=== PATIENT | female | born 1990 | race Caucasian/White ===

== ENCOUNTER 2016-09-02 13:17 | Emergency (ER) | payer BC ==
[~2016-09-02 13:17] MED LIST: BACIDCA PO; CIPR500T89 PO; METR500IV PO
[2016-09-02 15:49] LABS: BASO % 0.4 % (0.0-1.0); EOS # 0.1 K/mm3 (0.0-0.50); EOS % 1.5 % (0.0-3.0); LARGE UNSTAINED CELL # 0.1 K/mm3 (0.0-0.4); LARGE UNSTAINED CELL % 1.7 % (0.0-4.0); LYMPH # 1.3 K/mm3 (1.5-6.5); LYMPH % 20.4 % (24.0-44.0); MEAN CORPUSCULAR HGB CONC 33.9 g/dl (32.0-36.5); MEAN CORPUSCULAR VOLUME 91.6 fl (80.0-96.0); MONO # 0.3 K/mm3 (0.0-0.8); MONO % 5.2 % (0.0-5.0); NEUTROPHILS # 4.6 K/mm3 (1.8-7.7); NEUTROPHILS % 70.8 % (36.0-66.0); PLATELET COUNT, AUTOMATED 271 k/mm3 (150-450); RED CELL DISTRIBUTION WIDTH 12.3 % (11.5-14.5); WHITE BLOOD COUNT 6.5 K/mm3 (4.0-10.0)
--- NOTE | 2016-09-02 18:28 | EDDOCDS ---
Nurse's Notes [facility] Name: Marlene Souza Age: 26 yrs Sex: Female : 1990 Arrival Date: 09/02/2016 Time: 13:17 Bed I5 / M5 Private MD: NO PRIMARY PHYSICIAN, . Diagnosis: Pelvic and perineal pain; related conditions, unspecified, first trimester-early vs ectopic Presentation: 09/02 13:31 Presenting complaint: Patient states: Vaginal bleeding/cramps since yesterday. home rs3 test positive last week. Risk factors: The patient reports no loss of conciousness prior to arrival. This patient has not had a hysterectomy. This patient has not begun menopause. Adult Sepsis Screening: The patient does not have new or worsening altered mentation. Patient's respiratory rate is less than 22. Systolic blood pressure is greater than 100. Patient has a qSOFA score of 0- Negative Sepsis Screen. Suicide/Homicide risk assessment- the patient denies having any suicidal and/or homicidal ideations and does not present with any other emotional, behavioral or mental health complaints. Status: Patient is not a technical service representative or dependent. Transition of care: patient was not received from another setting of care. 13:31 Acuity: KP Level 3 rs3 13:31 Method Of Arrival: Walkin/Carried/Asstd rs3 Triage Assessment: 13:33 General: Appears in no apparent distress. Pain: Location: pelvis. HIV screening NA for rs3 this visit Offered previously. : Reports vaginal bleeding that is moderate flow. 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 none - PMHx: none; - PSHx: none; - Social history: Smoking status: Patient uses tobacco products, current some day smoker. No barriers to communication noted, The patient speaks fluent Polish. - Family history: Not pertinent. - : The pt / caregiver states he / she is not on anticoagulants. Home medication list is obtained from the patient. - Exposure Risk Screening:: None identified. Screenin:17 Screening information is obtained from the patient. Fall risk: No risks identified. jmb Assistance ADL's: requires no assistance with activities of daily living. Abuse/DV Screen: The patient / caregiver reports he/she is: not in a situation that causes fear, pain or injury. Nutritional screening: No deficits noted. home support is adequate. 18:16 Advance Directives: Currently, there is no health care proxy. There is no active DNR b order. There is no living will. There is no Power of Personal Care Worker. Assessment: 16:17 General: Appears in no apparent distress, Behavior is appropriate for age, cooperative, jmb Patient laying on stretcher looking up food on cell phone. NO voiced complaints at this time.. Neurological: Level of Consciousness is awake, alert, obeys commands, Oriented to person, place, time, Speech is normal, Facial symmetry appears normal, Facial symmetry: tongue is midline. Cardiovascular: Capillary refill < 3 seconds Heart tones present Pulses are all present. Rhythm is regular. Respiratory: Airway is patent Respiratory effort is even, unlabored, Respiratory pattern is regular, symmetrical, Breath sounds are clear bilaterally. GI: Abdomen is non- distended Bowel sounds present X 4 quads. GI: Abd is soft X 4 quads. Derm: Skin is pink, warm & dry. Musculoskeletal: Range of motion intact in all extremities. 16:53 General: Appears in no apparent distress, comfortable, Behavior is appropriate for age, jmb cooperative. Neurological: Level of Consciousness is awake, alert, obeys commands, Oriented to person, place, time. Respiratory: Airway is patent Respiratory effort is even, unlabored, Respiratory pattern is regular, symmetrical. 17:30 General: Appears in no apparent distress, comfortable, Behavior is appropriate for age, jmb cooperative, Patient sitting on stretcher, appears comfortable. NO voiced complaints at this time.. 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 Respiratory: Airway is patent Respiratory effort is even, unlabored, Respiratory pattern is regular, symmetrical. 18:01 General: Appears in no apparent distress, comfortable, Behavior is appropriate for age, jmb cooperative. Neurological: Level of Consciousness is awake, alert, obeys commands, Oriented to person, place, time. Respiratory: Airway is patent Respiratory effort is even, unlabored, Respiratory pattern is regular, symmetrical. 18:16 General: Patient instructed on discharge instructions. Patient asked if there were any [facility] questions regarding discharge, patient stated no. Patient signed discharge instructions. Patient discharged in stable condition. . Vital Signs: 13:19 BP 153 / 87; Pulse 89; Resp 18; Temp 97.3(O); Pulse Ox 100% ; Weight 77.11 kg; Height 5 elp ft. 3 in. (160.02 cm); Pain 2/10; 18:17 BP 132 / 70; Pulse 75; Resp 18; Temp 97.4(TE); Pulse Ox 98% on R/A; Pain 3/10; dem1 13:19 Body Mass Index 30.11 (77.11 kg, 160.02 cm) elp Vitals: 13:19 Log In Time: September 02, 2016 at 13:16. elp ED Course: 13:18 Patient visited by Madeline Davalos PCA. elp 13:18 Patient moved to Waiting elp 13:19 NO PRIMARY PHYSICIAN, . is Private Physician. elp 13:19 Patient visited by Madeline Davalos PCA. elp 13:19 Patient moved to Pre RCE elp 13:33 Triage Initiated rs3 14:35 Patient moved to Triage 1 ct3 15:02 Mitchel Anne PA-C is PHCP. ar2 15:03 Primo Higuera MD is Attending Physician. ar2 15:03 Patient visited by Mitchel Anne PA-C. ar2 15:17 UA Sent. ct3 15:19 Patient visited by Rosanna Craig PCA. ct3 15:35 Patient moved to I5 / M5 ms2 15:42 [facility] Payment Agreement was scanned into [employer] and attached to record. lg 15:52 Patient moved to Ultrasound dem1 16:01 Patient moved to I5 / M5 jmb 16:11 PHCP role handed off by Mitchel Anne PA-C mo1 16:11 Aaron Morrow PA is PHCP. mo1 16:17 The patient / caregiver is instructed regarding the plan of care and ED course. jmb 16:20 Patient visited by Nhan Mendoza RN. jmb 16:40 GC & Chlamydia Amplification Sent. dem1 16:40 Wet Prep Sent. dem1 16:56 Patient visited by Nhan Mendoza RN. fredrick 17:31 Patient visited by Nhan Mendoza RN. jmbenton 18:02 Patient visited by Nhan Mendoza RN. jmb 18:14 Leander Lilly MD is Referral Physician. mo1 18:16 No IV's were initiated during this patient's visit. No procedures done that require jmb assistance. 18:18 Patient visited by Kera Zhu. dem1 Point of Care Testing: Urine : 15:19 hCG Reading: Positive; Control Reading: Positive; ct3 Ranges: Order Results: Lab Order: UA; SPEC'M 09/02/16 15:18 Test: APPEARANCE, URINE; Value: CLEAR; Range: CLEAR; Status: F Test: COLOR, URINE; Value: YELLOW; Range: YELLOW; Status: F Test: PH,URINE; Value: 5.0; Range: 5.0-9.0; Units: UNITS; Status: F Test: SPECIFIC GRAVITY URINE AUTO; Value: 1.029; Range: 1.002-1.035; Status: F Test: PROTEIN, URINE AUTO; Value: 1+; Range: NEGATIVE; Abnormal: Above high normal; Units: mg/dL; Status: F Test: GLUCOSE, URINE (UA) AUTO; Value: NEGATIVE; Range: NEGATIVE; Units: mg/dL; Status: F Test: KETONE, URINE AUTO; Value: NEGATIVE; Range: NEGATIVE; Units: mg/dL; Status: F Test: UROBILINOGEN, URINE AUTO; Value: 0.2; Range: 0.0-2.0; Units: mg/dL; Status: F Test: BILIRUBIN, URINE AUTO; Value: NEGATIVE; Range: NEGATIVE; Status: F Test: NITRITE, URINE AUTO; Value: NEGATIVE; Range: NEGATIVE; Status: F Test: LEUKOCYTE ESTERASE, URINE AUTO; Value: NEGATIVE; Range: NEGATIVE; Status: F Test: BLOOD, URINE BLOOD; Value: 3+; Range: NEGATIVE; Abnormal: Above high normal; Status: F Test: WBC, URINE AUTO; Value: 2; Range: 0-3; Units: /HPF; Status: F Test: RBC, URINE AUTO; Value: 4; Range: 0-3; Abnormal: Above high normal; Units: /HPF; Status: F Test: BACTERIA, URINE AUTO; Value: NEGATIVE; Range: NEGATIVE; Status: F Test: SQUAMOUS EPITHELIAL CELL UR AU; Value: 4; Range: 0-6; Units: /HPF; Status: F Test: MUCUS, URINE; Value: SMALL; Range: NEGATIVE; Status: F Test: HYALINE CAST, URINE AUTO; Value: 0; Range: 0-1; Units: /LPF; Status: F Lab Order: Wet Prep; SPEC'M 09/02/16 15:33 Test: WET PREP; Value: WET PREP RESULT; Status: F Test: WET PREP; Value: MODERATE EPITHELIAL CELLS PRESENT; Status: F Test: WET PREP; Value: FEW WBC; Status: F Test: WET PREP; Value: FEW RBC; Status: F Test: WET PREP; Value: FEW SHORT RODS PRESENT; Status: F Test: WET PREP; Value: Comments:; Status: F Test Note: ; Specimen did not meet the 1 hour time limit from collection to examination. Trichomonas vaginalis loses motility quickly therefore, samples need to be examined within 1 hour of collection to optimally identify this organism. Lab Order: CBC with Diff; SPEC'M 09/02/16 15:34 Test: WHITE BLOOD COUNT; Value: 6.5; Range: 4.0-10.0; Units: K/mm3; Status: F Test: RED BLOOD COUNT; Value: 4.67; Range: 4.00-5.40; Units: M/mm3; Status: F Test: HEMOGLOBIN; Value: 14.5; Range: 12.0-16.0; Units: g/dl; Status: F Test: HEMATOCRIT; Value: 42.8; Range: 36.0-47.0; Units: %; Status: F Test: MEAN CORPUSCULAR VOLUME; Value: 91.6; Range: 80.0-96.0; Units: fl; Status: F Test: MEAN CORPUSCULAR HEMOGLOBIN; Value: 31.0; Range: 27.0-33.0; Units: pg; Status: F Test: MEAN CORPUSCULAR HGB CONC; Value: 33.9; Range: 32.0-36.5; Units: g/dl; Status: F Test: RED CELL DISTRIBUTION WIDTH; Value: 12.3; Range: 11.5-14.5; Units: %; Status: F Test: PLATELET COUNT, AUTOMATED; Value: 271; Range: 150-450; Units: k/mm3; Status: F Test: NEUTROPHILS %; Value: 70.8; Range: 36.0-66.0; Abnormal: Above high normal; Units: %; Status: F Test: LYMPH %; Value: 20.4; Range: 24.0-44.0; Abnormal: Below low normal; Units: %; Status: F Test: MONO %; Value: 5.2; Range: 0.0-5.0; Abnormal: Above high normal; Units: %; Status: F Test: EOS %; Value: 1.5; Range: 0.0-3.0; Units: %; Status: F Test: BASO %; Value: 0.4; Range: 0.0-1.0; Units: %; Status: F Test: LARGE UNSTAINED CELL %; Value: 1.7; Range: 0.0-4.0; Units: %; Status: F Test: NEUTROPHILS #; Value: 4.6; Range: 1.8-7.7; Units: K/mm3; Status: F Test: LYMPH #; Value: 1.3; Range: 1.5-6.5; Abnormal: Below low normal; Units: K/mm3; Status: F Test: MONO #; Value: 0.3; Range: 0.0-0.8; Units: K/mm3; Status: F Test: EOS #; Value: 0.1; Range: 0.0-0.50; Units: K/mm3; Status: F Test: BASO #; Value: 0.0; Range: 0.0-0.2; Units: K/mm3; Status: F Test: LARGE UNSTAINED CELL #; Value: 0.1; Range: 0.0-0.4; Units: K/mm3; Status: F Lab Order: Rh Only; SPEC'M 09/02/16 15:34 Test: RH; Value: POSITIVE; Status: F Lab Order: Hcg, Serum Quantitative; SPEC'M 09/02/16 15:34 Test: HCG, SERUM QUANTITATIVE; Value: 1449; Units: MIU/ML; Status: F Test Note: ; GESTATIONAL AGE APPROXIMATE HCG RANGE (MIU/ML) 0.2-1 WEEK 5-50 1-2 WEEKS 50-500 2-3 WEEKS 100-5,000 3-4 WEEKS 500-10,000 4-5 WEEKS 1,000-50,000 5-6 WEEKS 10,000-100,000 6-8 WEEKS 15,000-200,000 2-3 MONTHS 10,000-100,000 NON FEMALES LESS THAN 3.0 Patient samples may contain human heterophilic antibodies that could react with immunoassays to give falsely elevated or depressed results. This assay has been designed to minimize interference from heterophilic antibodies. Elevated hCG levels have also been associated with trophoblastic disease and nontrophoblastic neoplasms. The possibility of having these diseases should be considered before a diagnosis of is made. This test is not intended for use as a surrogate marker for aiding in the diagnosis or monitoring the treatment of cancer patients. [employer] methodology. Outcome: 18:14 Discharge ordered by Provider. mo1 18:16 Discharge Assessment: Patient awake, alert and oriented x 3. No cognitive and/or jmb functional deficits noted. Patient verbalized understanding of disposition instructions. Patient awake and alert. obeys commands, Oriented to person, place and time. Patient verbalized understanding of disposition instructions. Patient has no functional deficits. patient administered narcotics - no. The following High Risk Discharge criteria are identified: None. Discharged to home ambulatory. Condition: stable. Discharge instructions given to patient, Instructed on discharge instructions, follow up and referral plans. Demonstrated understanding of instructions, Pt was receptive of discharge instructions/ teaching. Ultrasound Study completed. Property sent home with patient. 18:26 Patient left the ED. fredrick Signatures: Manish Benjamin,TATE YBARRA ms2 Zeinab Richards, Reg Reg lg Mitchel Anne PA-So PA-So ar2 Dorothea Brasher RN RN rs3 Rosanna Craig, BUNDLE HELPER BUNDLE HELPER ct3 Kera Zhu dem1 Aaron Morrow PA PA mo1 Madeline Davalos, BUNDLE HELPER BUNDLE HELPER lap Nhan Mendoza RN RN jmb MTDD
--- NOTE | 2016-09-02 18:28 | EDDOCDS ---
Physician Documentation [facility] Name: Marlene Souza Age: 26 yrs Sex: Female : 1990 Arrival Date: 09/02/2016 Time: 13:17 Bed I5 / M5 Private MD: NO PRIMARY PHYSICIAN, . Disposition: 09/02/16 18:14 Discharged to Home/Self Care. Impression: Pelvic and perineal pain, related conditions, unspecified, first trimester - early vs ectopic. - Condition is Stable. - Discharge Instructions: First Trimester of , Pelvic Pain, Female, Ectopic . - Medication Reconciliation, Work Release Form - 3 day, Local Pharmacy Hours form. - Follow up: Leander Lilly MD; When: Call to arrange an appointment; Reason: Recheck today's complaints, Continuance of care. Follow up: Emergency Department; When: 1 - 2 days; Reason: Recheck today's complaints, Continuance of care. - Problem is new. - Symptoms are unchanged. - Notes: return to ER on monday for repeat beta HCG and possible ultrasound Historical: - Allergies: no known allergies; - Home Meds: 1. none - PMHx: none; - PSHx: none; - Social history: Smoking status: Patient uses tobacco products, current some day smoker. No barriers to communication noted, The patient speaks fluent Wolof. - Family history: Not pertinent. - : The pt / caregiver states he / she is not on anticoagulants. Home medication list is obtained from the patient. - Exposure Risk Screening:: None identified. 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 3 in. (160.02 cm); Pain 2/10; 18:17 BP 132 / 70; Pulse 75; Resp 18; Temp 97.4(TE); Pulse Ox 98% on R/A; Pain 3/10; dem1 13:19 Body Mass Index 30.11 (77.11 kg, 160.02 cm) elp MDM: 15:09 UCG by Nursing ordered. ar2 15:10 UA Ordered. EDMS 15:28 Set up pelvic ordered. ar2 15:28 Undress patient appropriately for examination ordered. ar2 15:29 Financial registration complete. lg 15:29 Rh Only Ordered. EDMS 15:29 GC & Chlamydia Amplification Ordered. EDMS 15:29 CBC with Diff Ordered. EDMS 15:29 Hcg, Serum Quantitative Ordered. EDMS 15:29 Wet Prep Ordered. EDMS 15:30 US 1st trimester Ordered. EDMS 15:42 [facility] Payment Agreement was scanned into [employer] and attached to record. lg 16:04 TRANSVAGINAL US Ordered. EDMS 16:04 DUPLEX SCAN LIMITED (DOPPLER) Ordered. EDMS 16:30 Hcg, Serum Quantitative Reviewed. mo1 16:30 Rh Only Reviewed. mo1 16:30 CBC with Diff Reviewed. mo1 16:30 UA Reviewed. mo1 17:12 Wet Prep Reviewed. mo1 Point of Care Testing: Urine : 15:19 hCG Reading: Positive; Control Reading: Positive; ct3 Ranges: Signatures: Dispatcher [employer] EDZeinab Hernandez, Reg Reg lg Mitchel Anne PA-C PASanjiv ar2 Dorothea Brasher,RN RN rs3 Aaron Morrow PA PA mo1 Nhan Mendoza RN RN carlib The chart was reviewed and I authenticate all verbal orders and agree with the evaluation and treatment provided.Attachments: 15:42 [facility] Payment Agreement lg MTDD
--- NOTE | 2016-09-03 22:10 | REP ---
First trimester OB ultrasound 09/02/2016 Indication: left-sided pain for 2 days with bleeding Comparison: None Technique: Trans abdominal and transvaginal first trimester OB ultrasound was performed with gonzalez scale imaging, spectral wave, and color Doppler imaging. Findings: Last menstrual period 07/08/2016. According to last menstrual period fetus should be 2-tkal-6-day gestational age. The patient is G4, P 3 . The uterus measures 8.6 x 3.8 x 4.6 cm in dimension. The endometrium is 3 mm in thickness. On image 52 tiny cystic focus is seen within the endometrium of 2.2 mm diameter and is nonspecific . The right ovary measures 2.2 x 0.7 x 2.4 cm and is unremarkable as visualized. Left ovary measures 2.9 x 1.8 x 3.1 cm and contains a 1.5 cm follicle. Perfusion is noted to the bilateral ovaries, therefore no evidence of torsion. Between the left ovary and the uterus is a hyperechoic area measuring 1.7 x 1.2 x 2.1 cm which has some and peripheral perfusion concerning for adnexal mass such as ectopic . There is no free fluid in cul-de-sac Impression: Echogenic 2.1 cm left adnexal mass which has peripheral perfusion, and is concerning for left ectopic . No free fluid in cul-de-sac. Tiny 2.2 nonspecific cystic focus within the endometrium. This could represent a pseudo gestational sac or early gestational sac. Case discussed with JOSHUA Liu on 09/02/16 at 435 pm. Recommend SEISMIC PLOTTER evaluation. Signed by Barbara Grimes MD 09/03/2016 10:01 P
[2016-09-04] MEDS ORDERED: OXYC1TAB23 PO (04:27)
--- NOTE | 2016-09-04 19:27 | EDDOCDS ---
Physician Documentation [facility] Name: Marlene Souza Age: 26 yrs Sex: Female : 1990 Arrival Date: 09/02/2016 Time: 13:17 Bed I5 / M5 Private MD: NO PRIMARY PHYSICIAN, . Disposition: 09/02/16 18:14 Discharged to Home/Self Care. Impression: Pelvic and perineal pain, related conditions, unspecified, first trimester - early vs ectopic. - Condition is Stable. - Discharge Instructions: First Trimester of , Pelvic Pain, Female, Ectopic . - Medication Reconciliation, Work Release Form - 3 day, Local Pharmacy Hours form. - Follow up: Leander Lilly MD; When: Call to arrange an appointment; Reason: Recheck today's complaints, Continuance of care. Follow up: Emergency Department; When: 1 - 2 days; Reason: Recheck today's complaints, Continuance of care. - Problem is new. - Symptoms are unchanged. - Notes: return to ER on monday for repeat beta HCG and possible ultrasound Historical: - Allergies: no known allergies; - Home Meds: 1. none - PMHx: none; - PSHx: none; - Social history: Smoking status: Patient uses tobacco products, current some day smoker. No barriers to communication noted, The patient speaks fluent Frisian. - Family history: Not pertinent. - : The pt / caregiver states he / she is not on anticoagulants. Home medication list is obtained from the patient. - Exposure Risk Screening:: None identified. 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 3 in. (160.02 cm); Pain 2/10; 18:17 BP 132 / 70; Pulse 75; Resp 18; Temp 97.4(TE); Pulse Ox 98% on R/A; Pain 3/10; dem1 13:19 Body Mass Index 30.11 (77.11 kg, 160.02 cm) elp MDM: 15:09 UCG by Nursing ordered. ar2 15:10 UA Ordered. EDMS 15:28 Set up pelvic ordered. ar2 15:28 Undress patient appropriately for examination ordered. ar2 15:29 Financial registration complete. lg 15:29 Rh Only Ordered. EDMS 15:29 GC & Chlamydia Amplification Ordered. EDMS 15:29 CBC with Diff Ordered. EDMS 15:29 Hcg, Serum Quantitative Ordered. EDMS 15:29 Wet Prep Ordered. EDMS 15:30 US 1st trimester Ordered. EDMS 15:42 [facility] Payment Agreement was scanned into [employer] and attached to record. lg 16:04 TRANSVAGINAL US Ordered. EDMS 16:04 DUPLEX SCAN LIMITED (DOPPLER) Ordered. EDMS 16:30 Hcg, Serum Quantitative Reviewed. mo1 16:30 Rh Only Reviewed. mo1 16:30 CBC with Diff Reviewed. mo1 16:30 UA Reviewed. mo1 17:12 Wet Prep Reviewed. mo1 09/03 11:11 T-Sheet-- Draft Copy was scanned into [employer] and attached to record. gb 11:11 Radiology Report was scanned into [employer] and attached to record. gb Point of Care Testing: Urine : 09/02 15:19 hCG Reading: Positive; Control Reading: Positive; ct3 Ranges: Signatures: Dispatcher [employer] EDMS Nayely Hernandez, Reg Reg gb Zeinab Richards, Reg Reg lg Mitchel Anne PA-C PA-C ar2 Dorothea Brasher,RN RN rs3 Aaron Morrow PA PA mo1 Nhan Mendoza RN RN jmb The chart was reviewed and I authenticate all verbal orders and agree with the evaluation and treatment provided.Attachments: 15:42 [facility] Payment Agreement lg 09/03 11:11 T-Sheet-- Draft Copy gb Chart Complete MTDD
--- NOTE | 2016-09-04 19:27 | EDDOCDS ---
Nurse's Notes [facility] Name: Marlene Souza Age: 26 yrs Sex: Female : 1990 Arrival Date: 09/02/2016 Time: 13:17 Bed I5 / M5 Private MD: NO PRIMARY PHYSICIAN, . Diagnosis: Pelvic and perineal pain; related conditions, unspecified, first trimester-early vs ectopic Presentation: 09/02 13:31 Presenting complaint: Patient states: Vaginal bleeding/cramps since yesterday. home rs3 test positive last week. Risk factors: The patient reports no loss of conciousness prior to arrival. This patient has not had a hysterectomy. This patient has not begun menopause. Adult Sepsis Screening: The patient does not have new or worsening altered mentation. Patient's respiratory rate is less than 22. Systolic blood pressure is greater than 100. Patient has a qSOFA score of 0- Negative Sepsis Screen. Suicide/Homicide risk assessment- the patient denies having any suicidal and/or homicidal ideations and does not present with any other emotional, behavioral or mental health complaints. Status: Patient is not a director field services or dependent. Transition of care: patient was not received from another setting of care. 13:31 Acuity: KP Level 3 rs3 13:31 Method Of Arrival: Walkin/Carried/Asstd rs3 Triage Assessment: 13:33 General: Appears in no apparent distress. Pain: Location: pelvis. HIV screening NA for rs3 this visit Offered previously. : Reports vaginal bleeding that is moderate flow. 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 none - PMHx: none; - PSHx: none; - Social history: Smoking status: Patient uses tobacco products, current some day smoker. No barriers to communication noted, The patient speaks fluent Wolof. - Family history: Not pertinent. - : The pt / caregiver states he / she is not on anticoagulants. Home medication list is obtained from the patient. - Exposure Risk Screening:: None identified. Screenin:17 Screening information is obtained from the patient. Fall risk: No risks identified. jmb Assistance ADL's: requires no assistance with activities of daily living. Abuse/DV Screen: The patient / caregiver reports he/she is: not in a situation that causes fear, pain or injury. Nutritional screening: No deficits noted. home support is adequate. 18:16 Advance Directives: Currently, there is no health care proxy. There is no active DNR b order. There is no living will. There is no Power of Correctional Substance Abuse Counselor. Assessment: 16:17 General: Appears in no apparent distress, Behavior is appropriate for age, cooperative, jmb Patient laying on stretcher looking up food on cell phone. NO voiced complaints at this time.. Neurological: Level of Consciousness is awake, alert, obeys commands, Oriented to person, place, time, Speech is normal, Facial symmetry appears normal, Facial symmetry: tongue is midline. Cardiovascular: Capillary refill < 3 seconds Heart tones present Pulses are all present. Rhythm is regular. Respiratory: Airway is patent Respiratory effort is even, unlabored, Respiratory pattern is regular, symmetrical, Breath sounds are clear bilaterally. GI: Abdomen is non- distended Bowel sounds present X 4 quads. GI: Abd is soft X 4 quads. Derm: Skin is pink, warm & dry. Musculoskeletal: Range of motion intact in all extremities. 16:53 General: Appears in no apparent distress, comfortable, Behavior is appropriate for age, jmb cooperative. Neurological: Level of Consciousness is awake, alert, obeys commands, Oriented to person, place, time. Respiratory: Airway is patent Respiratory effort is even, unlabored, Respiratory pattern is regular, symmetrical. 17:30 General: Appears in no apparent distress, comfortable, Behavior is appropriate for age, jmb cooperative, Patient sitting on stretcher, appears comfortable. NO voiced complaints at this time.. Neurological: Level of Consciousness is awake, alert, obeys commands, Oriented to person, place, time, Radio Mechanic Apprentice are. Respiratory: Airway is patent Respiratory effort is even, unlabored, Respiratory pattern is regular, symmetrical. 18:01 General: Appears in no apparent distress, comfortable, Behavior is appropriate for age, jmb cooperative. Neurological: Level of Consciousness is awake, alert, obeys commands, Oriented to person, place, time. Respiratory: Airway is patent Respiratory effort is even, unlabored, Respiratory pattern is regular, symmetrical. 18:16 General: Patient instructed on discharge instructions. Patient asked if there were any [place] questions regarding discharge, patient stated no. Patient signed discharge instructions. Patient discharged in stable condition. . Vital Signs: 13:19 BP 153 / 87; Pulse 89; Resp 18; Temp 97.3(O); Pulse Ox 100% ; Weight 77.11 kg; Height 5 elp ft. 3 in. (160.02 cm); Pain 2/10; 18:17 BP 132 / 70; Pulse 75; Resp 18; Temp 97.4(TE); Pulse Ox 98% on R/A; Pain 3/10; dem1 13:19 Body Mass Index 30.11 (77.11 kg, 160.02 cm) elp Vitals: 13:19 Log In Time: September 02, 2016 at 13:16. elp ED Course: 13:18 Patient visited by Madeline Davalos PCA. elp 13:18 Patient moved to Waiting elp 13:19 NO PRIMARY PHYSICIAN, . is Private Physician. elp 13:19 Patient visited by Madeline Davalos PCA. elp 13:19 Patient moved to Pre RCE elp 13:33 Triage Initiated rs3 14:35 Patient moved to Triage 1 ct3 15:02 Mitchel Anne PA-C is PHCP. ar2 15:03 Primo Higuera MD is Attending Physician. ar2 15:03 Patient visited by Mitchel Anne PA-C. ar2 15:17 UA Sent. ct3 15:19 Patient visited by Rosanna Craig PCA. ct3 15:35 Patient moved to I5 / M5 ms2 15:42 [facility] Payment Agreement was scanned into [employer] and attached to record. lg 15:52 Patient moved to Ultrasound dem1 16:01 Patient moved to I5 / M5 jmb 16:11 PHCP role handed off by Mitchel Anne PA-C mo1 16:11 Aaron Morrow PA is PHCP. mo1 16:17 The patient / caregiver is instructed regarding the plan of care and ED course. jmb 16:20 Patient visited by Nhan Mendoza RN. jmb 16:40 GC & Chlamydia Amplification Sent. dem1 16:40 Wet Prep Sent. dem1 16:56 Patient visited by Nhan Mendoza RN. fredrick 17:31 Patient visited by Nhan Mendoza RN. jmbenton 18:02 Patient visited by Nhan Mendoza RN. jmb 18:14 Leander Lilly MD is Referral Physician. mo1 18:16 No IV's were initiated during this patient's visit. No procedures done that require jmb assistance. 18:18 Patient visited by Kera Zhu. dem1 09/03 11:11 T-Sheet-- Draft Copy was scanned into [employer] and attached to record. gb 11:11 Radiology Report was scanned into [employer] and attached to record. gb 22:57 US 1st trimester Returned. EDCA Point of Care Testing: Urine : 09/02 15:19 hCG Reading: Positive; Control Reading: Positive; ct3 Ranges: Order Results: Lab Order: UA; SPEC'M 09/02/16 15:18 Test: APPEARANCE, URINE; Value: CLEAR; Range: CLEAR; Status: F Test: COLOR, URINE; Value: YELLOW; Range: YELLOW; Status: F Test: PH,URINE; Value: 5.0; Range: 5.0-9.0; Units: UNITS; Status: F Test: SPECIFIC GRAVITY URINE AUTO; Value: 1.029; Range: 1.002-1.035; Status: F Test: PROTEIN, URINE AUTO; Value: 1+; Range: NEGATIVE; Abnormal: Above high normal; Units: mg/dL; Status: F Test: GLUCOSE, URINE (UA) AUTO; Value: NEGATIVE; Range: NEGATIVE; Units: mg/dL; Status: F Test: KETONE, URINE AUTO; Value: NEGATIVE; Range: NEGATIVE; Units: mg/dL; Status: F Test: UROBILINOGEN, URINE AUTO; Value: 0.2; Range: 0.0-2.0; Units: mg/dL; Status: F Test: BILIRUBIN, URINE AUTO; Value: NEGATIVE; Range: NEGATIVE; Status: F Test: NITRITE, URINE AUTO; Value: NEGATIVE; Range: NEGATIVE; Status: F Test: LEUKOCYTE ESTERASE, URINE AUTO; Value: NEGATIVE; Range: NEGATIVE; Status: F Test: BLOOD, URINE BLOOD; Value: 3+; Range: NEGATIVE; Abnormal: Above high normal; Status: F Test: WBC, URINE AUTO; Value: 2; Range: 0-3; Units: /HPF; Status: F Test: RBC, URINE AUTO; Value: 4; Range: 0-3; Abnormal: Above high normal; Units: /HPF; Status: F Test: BACTERIA, URINE AUTO; Value: NEGATIVE; Range: NEGATIVE; Status: F Test: SQUAMOUS EPITHELIAL CELL UR AU; Value: 4; Range: 0-6; Units: /HPF; Status: F Test: MUCUS, URINE; Value: SMALL; Range: NEGATIVE; Status: F Test: HYALINE CAST, URINE AUTO; Value: 0; Range: 0-1; Units: /LPF; Status: F Lab Order: Wet Prep; SPEC'M 09/02/16 15:33 Test: WET PREP; Value: WET PREP RESULT; Status: F Test: WET PREP; Value: MODERATE EPITHELIAL CELLS PRESENT; Status: F Test: WET PREP; Value: FEW WBC; Status: F Test: WET PREP; Value: FEW RBC; Status: F Test: WET PREP; Value: FEW SHORT RODS PRESENT; Status: F Test: WET PREP; Value: Comments:; Status: F Test Note: ; Specimen did not meet the 1 hour time limit from collection to examination. Trichomonas vaginalis loses motility quickly therefore, samples need to be examined within 1 hour of collection to optimally identify this organism. Lab Order: GC & Chlamydia Amplification; SPEC'M 09/02/16 15:33 Test: CHLAMYDIA DNA AMPLIFICATION; Value: NEGATIVE; Range: NEGATIVE; Status: F Test: GC DNA AMPLIFICATION; Value: NEGATIVE; Range: NEGATIVE; Status: F Lab Order: CBC with Diff; SPEC'M 09/02/16 15:34 Test: WHITE BLOOD COUNT; Value: 6.5; Range: 4.0-10.0; Units: K/mm3; Status: F Test: RED BLOOD COUNT; Value: 4.67; Range: 4.00-5.40; Units: M/mm3; Status: F Test: HEMOGLOBIN; Value: 14.5; Range: 12.0-16.0; Units: g/dl; Status: F Test: HEMATOCRIT; Value: 42.8; Range: 36.0-47.0; Units: %; Status: F Test: MEAN CORPUSCULAR VOLUME; Value: 91.6; Range: 80.0-96.0; Units: fl; Status: F Test: MEAN CORPUSCULAR HEMOGLOBIN; Value: 31.0; Range: 27.0-33.0; Units: pg; Status: F Test: MEAN CORPUSCULAR HGB CONC; Value: 33.9; Range: 32.0-36.5; Units: g/dl; Status: F Test: RED CELL DISTRIBUTION WIDTH; Value: 12.3; Range: 11.5-14.5; Units: %; Status: F Test: PLATELET COUNT, AUTOMATED; Value: 271; Range: 150-450; Units: k/mm3; Status: F Test: NEUTROPHILS %; Value: 70.8; Range: 36.0-66.0; Abnormal: Above high normal; Units: %; Status: F Test: LYMPH %; Value: 20.4; Range: 24.0-44.0; Abnormal: Below low normal; Units: %; Status: F Test: MONO %; Value: 5.2; Range: 0.0-5.0; Abnormal: Above high normal; Units: %; Status: F Test: EOS %; Value: 1.5; Range: 0.0-3.0; Units: %; Status: F Test: BASO %; Value: 0.4; Range: 0.0-1.0; Units: %; Status: F Test: LARGE UNSTAINED CELL %; Value: 1.7; Range: 0.0-4.0; Units: %; Status: F Test: NEUTROPHILS #; Value: 4.6; Range: 1.8-7.7; Units: K/mm3; Status: F Test: LYMPH #; Value: 1.3; Range: 1.5-6.5; Abnormal: Below low normal; Units: K/mm3; Status: F Test: MONO #; Value: 0.3; Range: 0.0-0.8; Units: K/mm3; Status: F Test: EOS #; Value: 0.1; Range: 0.0-0.50; Units: K/mm3; Status: F Test: BASO #; Value: 0.0; Range: 0.0-0.2; Units: K/mm3; Status: F Test: LARGE UNSTAINED CELL #; Value: 0.1; Range: 0.0-0.4; Units: K/mm3; Status: F Lab Order: Rh Only; SPEC'M 09/02/16 15:34 Test: RH; Value: POSITIVE; Status: F Lab Order: Hcg, Serum Quantitative; SPEC'M 09/02/16 15:34 Test: HCG, SERUM QUANTITATIVE; Value: 1449; Units: MIU/ML; Status: F Test Note: ; GESTATIONAL AGE APPROXIMATE HCG RANGE (MIU/ML) 0.2-1 WEEK 5-50 1-2 WEEKS 50-500 2-3 WEEKS 100-5,000 3-4 WEEKS 500-10,000 4-5 WEEKS 1,000-50,000 5-6 WEEKS 10,000-100,000 6-8 WEEKS 15,000-200,000 2-3 MONTHS 10,000-100,000 NON FEMALES LESS THAN 3.0 Patient samples may contain human heterophilic antibodies that could react with immunoassays to give falsely elevated or depressed results. This assay has been designed to minimize interference from heterophilic antibodies. Elevated hCG levels have also been associated with trophoblastic disease and nontrophoblastic neoplasms. The possibility of having these diseases should be considered before a diagnosis of is made. This test is not intended for use as a surrogate marker for aiding in the diagnosis or monitoring the treatment of cancer patients. Siemens Tribunat methodology. Radiology Order: US 1st trimester Test: US 1st trimester REASON FOR EXAMINATION: Bleeding; First trimester OB ultrasound 09/02/2016; ; Indication: left-sided pain for 2 days with bleeding; ; Comparison: None; ; Technique: Trans abdominal and transvaginal first trimester OB ultrasound was; performed with gonzalez scale imaging, spectral wave, and color Doppler imaging.; ; Findings: Last menstrual period 07/08/2016. According to last menstrual period; fetus should be 6-hswv-7-day gestational age. The patient is G4, P 3 .; ; The uterus measures 8.6 x 3.8 x 4.6 cm in dimension. The endometrium is 3 mm in; thickness. On image 52 tiny cystic focus is seen within the endometrium of 2.2; mm diameter and is nonspecific .; ; The right ovary measures 2.2 x 0.7 x 2.4 cm and is unremarkable as visualized.; Left ovary measures 2.9 x 1.8 x 3.1 cm and contains a 1.5 cm follicle. Perfusion; is noted to the bilateral ovaries, therefore no evidence of torsion. Between the; left ovary and the uterus is a hyperechoic area measuring 1.7 x 1.2 x 2.1 cm; which has some and peripheral perfusion concerning for adnexal mass such as; ectopic .; ; There is no free fluid in cul-de-sac; ; Impression:; ; Echogenic 2.1 cm left adnexal mass which has peripheral perfusion, and is; concerning for left ectopic .; ; No free fluid in cul-de-sac.; ; Tiny 2.2 nonspecific cystic focus within the endometrium. This could represent a; pseudo gestational sac or early gestational sac.; ; Case discussed with JOSHUA Liu on 09/02/16 at 435 pm.; ; Recommend SHEET MILL SUPERVISOR evaluation.; ; ; ; ; Signed by; Barbara Grimes MD 09/03/2016 10:01 P; Outcome: 18:14 Discharge ordered by Provider. mo1 18:16 Discharge Assessment: Patient awake, alert and oriented x 3. No cognitive and/or jmb functional deficits noted. Patient verbalized understanding of disposition instructions. Patient awake and alert. obeys commands, Oriented to person, place and time. Patient verbalized understanding of disposition instructions. Patient has no functional deficits. patient administered narcotics - no. The following High Risk Discharge criteria are identified: None. Discharged to home ambulatory. Condition: stable. Discharge instructions given to patient, Instructed on discharge instructions, follow up and referral plans. Demonstrated understanding of instructions, Pt was receptive of discharge instructions/ teaching. Ultrasound Study completed. Property sent home with patient. 18:26 Patient left the ED. fredrick Signatures: Dispatcher [employer] EDMS Manish Benjamin,RN RN ms2 Nayely Hernandez, Reg Reg gb Zeinab Richards, Reg Reg lg Mitchel Anne PA-C PASanjiv arDorothea Krishnamurthy RN RN rs3 Rosanna Craig, DIRECTOR FIELD SERVICES DIRECTOR FIELD SERVICES ct3 Kera Zhu Michael, PA PA mo1 Madeline Davalos, DIRECTOR FIELD SERVICES DIRECTOR FIELD SERVICES lap Nhan Mendoza RN RN jmb Chart Complete MTDD
--- NOTE | 2016-09-04 19:27 | EDDOCDS ---
Physician Documentation [facility] Name: Marlene Souza Age: 26 yrs Sex: Female : 1990 Arrival Date: 09/02/2016 Time: 13:17 Bed I5 / M5 Private MD: NO PRIMARY PHYSICIAN, . Disposition: 09/02/16 18:14 Discharged to Home/Self Care. Impression: Pelvic and perineal pain, related conditions, unspecified, first trimester - early vs ectopic. - Condition is Stable. - Discharge Instructions: First Trimester of , Pelvic Pain, Female, Ectopic . - Medication Reconciliation, Work Release Form - 3 day, Local Pharmacy Hours form. - Follow up: Leander Lilly MD; When: Call to arrange an appointment; Reason: Recheck today's complaints, Continuance of care. Follow up: Emergency Department; When: 1 - 2 days; Reason: Recheck today's complaints, Continuance of care. - Problem is new. - Symptoms are unchanged. - Notes: return to ER on monday for repeat beta HCG and possible ultrasound Historical: - Allergies: no known allergies; - Home Meds: 1. none - PMHx: none; - PSHx: none; - Social history: Smoking status: Patient uses tobacco products, current some day smoker. No barriers to communication noted, The patient speaks fluent Mohawk. - Family history: Not pertinent. - : The pt / caregiver states he / she is not on anticoagulants. Home medication list is obtained from the patient. - Exposure Risk Screening:: None identified. 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 3 in. (160.02 cm); Pain 2/10; 18:17 BP 132 / 70; Pulse 75; Resp 18; Temp 97.4(TE); Pulse Ox 98% on R/A; Pain 3/10; dem1 13:19 Body Mass Index 30.11 (77.11 kg, 160.02 cm) elp MDM: 15:09 UCG by Nursing ordered. ar2 15:10 UA Ordered. EDMS 15:28 Set up pelvic ordered. ar2 15:28 Undress patient appropriately for examination ordered. ar2 15:29 Financial registration complete. lg 15:29 Rh Only Ordered. EDMS 15:29 GC & Chlamydia Amplification Ordered. EDMS 15:29 CBC with Diff Ordered. EDMS 15:29 Hcg, Serum Quantitative Ordered. EDMS 15:29 Wet Prep Ordered. EDMS 15:30 US 1st trimester Ordered. EDMS 15:42 [facility] Payment Agreement was scanned into [employer] and attached to record. lg 16:04 TRANSVAGINAL US Ordered. EDMS 16:04 DUPLEX SCAN LIMITED (DOPPLER) Ordered. EDMS 16:30 Hcg, Serum Quantitative Reviewed. mo1 16:30 Rh Only Reviewed. mo1 16:30 CBC with Diff Reviewed. mo1 16:30 UA Reviewed. mo1 17:12 Wet Prep Reviewed. mo1 09/03 11:11 T-Sheet-- Draft Copy was scanned into [employer] and attached to record. gb 11:11 Radiology Report was scanned into [employer] and attached to record. gb Point of Care Testing: Urine : 09/02 15:19 hCG Reading: Positive; Control Reading: Positive; ct3 Ranges: Signatures: Dispatcher [employer] EDMS Nayely Hernandez, Reg Reg gb Zeinab Richards, Reg Reg lg Mitchel Anne PA-C PA-C ar2 Dorothea Brasher,RN RN rs3 Aaron Morrow PA PA mo1 Nhan Mendoza RN RN jmb The chart was reviewed and I authenticate all verbal orders and agree with the evaluation and treatment provided.Attachments: 15:42 [facility] Payment Agreement lg 09/03 11:11 T-Sheet-- Draft Copy gb Chart Complete MTDD
== END 2016-09-02 18:26 | disposition home or self-care (01) ==
LOC: M ED 13:17
DX: O26.891 Other specified pregnancy related conditions, first trimester (principal); R10.2 Pelvic and perineal pain; O99.331 Smoking (tobacco) complicating pregnancy, first trimester; F17.210 Nicotine dependence, cigarettes, uncomplicated; Z3A.01 Less than 8 weeks gestation of pregnancy

== ENCOUNTER 2016-09-04 00:07 | Day surgery (SDC) | payer BC ==
[2016-09-04] VITALS (7 sets, daily range): BP systolic 109–131; BP diastolic 55–76
[~2016-09-04] VITALS: Ht 162.6 cm; Wt 77.1 kg
[2016-09-04 01:11] LABS: MEAN CORPUSCULAR HEMOGLOBIN 32.8 pg (27.0-33.0); MEAN CORPUSCULAR VOLUME 91.2 fl (80.0-96.0); RED CELL DISTRIBUTION WIDTH 12.3 % (11.5-14.5); WHITE BLOOD COUNT 5.9 K/mm3 (4.0-10.0)
--- NOTE | 2016-09-04 01:50 | REPUSA ---
CLINICAL HISTORY: determination. TECHNIQUE: Endovaginal ultrasound of the pelvis was performed. FINDINGS: Multiple tiny cysts/sac like structures are noted within the uterus. No decidual reaction is seen. Normal right ovary. Corpus luteum cyst of the left ovary measuring 2 cm Hyperechoic, thickwalled left adnexal mass medial to the left ovary with increased vascularity measur ing 2.1x2.1x2 cm. Surrounding free fluid containing echogenic debris. IMPRESSION: Suspicion of left adnexal ectopic . Surrounding heterogeneous fluid containing debris. This is suspicious for leakage/rupture. No fracture or .
[2016-09-04] MEDS ORDERED: ONDANSETRON 4MG/2ML VIAL (J2405) As Ordered ONE ×2 (01:58→03:24)
[2016-09-04] MEDS ORDERED: HYDROmorphone HCL 1 MG/ML SYRINGE (J1170) As Ordered ONE ×2 (01:59→04:25)
[2016-09-04] MEDS ORDERED: ACETAMINOPHEN 650 MG SUPP As Ordered ONE (02:05)
[2016-09-04] MEDS ORDERED: BUPIVACAINE/EPIN 0.25% 30 ML VIAL As Ordered ONE (02:06)
[2016-09-04 02:14] LABS: INR 0.85
--- NOTE | 2016-09-04 02:40 | EDDOCDS ---
Nurse's Notes [facility] Name: Marlene Souza Age: 26 yrs Sex: Female : 1990 Arrival Date: 09/04/2016 Time: 00:07 Bed 5 Private MD: Diagnosis: Delayed or excessive hemorrhage following ectopic and molar Presentation: 09/04 00:25 Presenting complaint: Patient states: Vaginal bleeding. Severe left lower abdominal kmg1 pain. Was seen here for same last evening. Risk factors: The patient reports no loss of conciousness prior to arrival. This patient has not had a hysterectomy. This patient has not begun menopause. Suicide/Homicide risk assessment- the patient denies having any suicidal and/or homicidal ideations and does not present with any other emotional, behavioral or mental health complaints. 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 Transition of care: patient was not received from another setting of care. 00:25 Acuity: KP Level 3 kmg1 00:25 Method Of Arrival: Walkin/Carried/Asstd km 02:24 Adult Sepsis Screening: The patient does not have new or worsening altered mentation. js15 Patient's respiratory rate is less than 22. Systolic blood pressure is greater than 100. Patient has a qSOFA score of 0- Negative Sepsis Screen. Triage Assessment: 00:27 General: Appears distressed, ill, uncomfortable, Behavior is crying, restless. Pain: kmg1 Location: left lower quadrant Pain currently is 10 out of 10 on a pain scale. Quality of pain is described as sharp, stabbing. HIV screening NA for this visit Offered previously. GI: Pt is actively vomiting Reports lower abdominal pain, nausea, vomiting. : Reports vaginal bleeding that is moderate flow. 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 none - PMHx: none; - PSHx: none; - Social history: Smoking status: Patient uses tobacco products, current some day smoker. No barriers to communication noted, The patient speaks fluent Macedonian, Speaks appropriately for age. - Family history: Not pertinent. - : The pt / caregiver states he / she is not on anticoagulants. Home medication list is obtained from the patient. - Exposure Risk Screening:: None identified. Screenin:22 Screening information is obtained from the patient. Fall risk: No risks identified. js15 Assistance ADL's: requires no assistance with activities of daily living. Abuse/DV Screen: The patient / caregiver reports he/she is: not in a situation that causes fear, pain or injury. Nutritional screening: No deficits noted. Advance Directives: There is no active DNR order. home support is adequate. Assessment: 00:45 General: Appears uncomfortable, Behavior is anxious, appropriate for age, cooperative. js15 Pain: Location: abdomen and left lower quadrant Pain currently is 10 out of 10 on a pain scale. Neurological: Level of Consciousness is awake, alert, obeys commands, Oriented to person, place, time. Cardiovascular: Capillary refill < 3 seconds. Respiratory: Airway is patent Respiratory effort is even, unlabored, Respiratory pattern is regular, symmetrical, Breath sounds are clear bilaterally. GI: Abdomen is non- distended Bowel sounds present X 4 quads. Abd is tender to palpation in left lower quadrant. : Reports vaginal bleeding that is heavy flow. Derm: Skin is pink, warm & dry. 01:30 Reassessment: Pt resting on stretcher with eyes closed; respirations even and js15 unlabored; skin pink, warm, dry; will continue to monitor. 02:22 Reassessment: Pt sitting up on stretcher, tearful, states pain 10/10 in abdomen; js15 respirations unlabored; skin pink, warm, dry, will continue to monitor. Vital Signs: 00:27 BP 155 / 86; Pulse 85; Resp 20; Temp 99.4(O); Pulse Ox 100% on R/A; Weight 77.11 kg [facility] (R); Height 5 ft. 4 in. (162.56 cm) (R); Pain 10/10; 02:25 BP 134 / 75; Pulse 67; Resp 16; Temp 98.3(O); Pulse Ox 99% on R/A; Pain 7/10; js15 02:26 Pain 7/10; js15 00:27 Body Mass Index 29.18 (77.11 kg, 162.56 cm) [facility] Vitals: 00:27 Log In Time: September 04, 2016 at 00:01. [facility] [place] Course: 00:09 Patient visited by Sonali Bolanos. [facility] 00:09 Patient moved to Waiting gjb 00:27 Triage Initiated kmg1 00:29 Patient moved to Pre RCE cz 00:31 Patient moved to 5 kmg1 00:32 Larry Jalloh DO is Attending Physician. cs11 00:32 Patient visited by Larry Jalloh DO. cs11 01:36 Patient visited by Pat Rosen PCA. eleanor 01:42 Type and Cross, Packed Cells Sent. js15 01:50 The patient / caregiver is instructed regarding the plan of care and ED course. js15 01:50 Inserted saline lock: 18 gauge in left antecubital area The patient tolerated the js15 procedure well. 01:52 Leander Lilly MD is Hospitalizing Provider. cs11 01:58 TYPE & SCREEN Sent. js15 01:58 Pt & Aptt Sent. js15 02:03 TRANSVAGINAL US Returned. EDMS 02:24 No procedures done that require assistance. js15 02:36 Admission Orders was scanned into [employer] and attached to record. ml3 Administered Medications: 02:05 Drug: NS 0.9% 1000 ml [sodium chloride 0.9 % intravenous solution] Route: IV; Rate: js15 bolus; Site: left antecubital; 02:26 Follow up: IV Status: Infusion continued upon admit js15 02:05 Drug: Dilaudid - HYDROmorphone 0.5 mg [hydromorphone 1 mg/mL injection syringe (0.5 js15 mL)] Route: IVP; Site: left antecubital; 02:26 Follow up: Pain 7/10 Adult; Response: No Adverse Reaction js15 Order Results: Lab Order: CBC; SPEC'M 09/04/16 00:44 Test: WHITE BLOOD COUNT; Value: 5.9; Range: 4.0-10.0; Units: K/mm3; Status: F Test: RED BLOOD COUNT; Value: 4.44; Range: 4.00-5.40; Units: M/mm3; Status: F Test: HEMOGLOBIN; Value: 14.6; Range: 12.0-16.0; Units: g/dl; Status: F Test: HEMATOCRIT; Value: 40.4; Range: 36.0-47.0; Units: %; Status: F Test: MEAN CORPUSCULAR VOLUME; Value: 91.2; Range: 80.0-96.0; Units: fl; Status: F Test: MEAN CORPUSCULAR HEMOGLOBIN; Value: 32.8; Range: 27.0-33.0; Units: pg; Status: F Test: MEAN CORPUSCULAR HGB CONC; Value: 36.0; Range: 32.0-36.5; Units: g/dl; Status: F Test: RED CELL DISTRIBUTION WIDTH; Value: 12.3; Range: 11.5-14.5; Units: %; Status: F Test: PLATELET COUNT, AUTOMATED; Value: 254; Range: 150-450; Units: k/mm3; Status: F Lab Order: Rh Only; SPEC09/04/16 00:44 Test: RH; Value: POSITIVE; Status: F Lab Order: Hcg, Serum Quantitative; 09/04/16 00:44 Test: HCG, SERUM QUANTITATIVE; Value: 1448; Units: MIU/ML; Status: F Test Note: ; GESTATIONAL AGE APPROXIMATE HCG RANGE (MIU/ML) 0.2-1 WEEK 5-50 1-2 WEEKS 50-500 2-3 WEEKS 100-5,000 3-4 WEEKS 500-10,000 4-5 WEEKS 1,000-50,000 5-6 WEEKS 10,000-100,000 6-8 WEEKS 15,000-200,000 2-3 MONTHS 10,000-100,000 NON FEMALES LESS THAN 3.0 Patient samples may contain human heterophilic antibodies that could react with immunoassays to give falsely elevated or depressed results. This assay has been designed to minimize interference from heterophilic antibodies. Elevated hCG levels have also been associated with trophoblastic disease and nontrophoblastic neoplasms. The possibility of having these diseases should be considered before a diagnosis of is made. This test is not intended for use as a surrogate marker for aiding in the diagnosis or monitoring the treatment of cancer patients. [employer] methodology. Lab Order: Pt & Aptt; 09/04/16 01:56 Test: PROTHROMBIN TIME; Value: 11.7; Range: 12.3-14.5; Abnormal: Below low normal; Units: SECONDS; Status: F Test: INR; Value: 0.85; Status: F Test: PARTIAL THROMBOPLASTIN TIME; Value: 24.8; Range: 26.6-37.1; Abnormal: Below low normal; Units: SECONDS; Status: F Test Note: ; THERAPUTIC HUMAN INR VALUES INDICATIONS NORMAL RANGES PROPHYLAXIS/TREATMENT OF: VENOUS THROMBOSIS 2.0-3.0 PULMONARY EMBOLISM 2.0-3.0 PREVENTION OF SYSTEMIC EMBOLISM FROM: TISSUE HEART VALVES 2.0-3.0 ACUTE MYOCARDIAL INFARCTION 2.0-3.0 VALVULAR HEART DISEASE 2.0-3.0 ATRIAL FIBRILLATION 2.0-3.0 MECHANICAL VALVES(HIGH RISK) 2.5-3.5 RECURRENT MYOCARDIAL INFARCTION 2.5-3.5 Lab Order: TYPE & SCREEN; SPEC'M 09/04/16 01:56 Test: BLOOD TYPE; Value: O POS; Status: F Test: AB SCREEN (INDIRECT CHAPO)GEL; Value: NEGATIVE; Status: F Test: IMMEDIATE SPIN CROSSMATCH; Value: [id number] O POSITIVE Compatible? Y; Status: F Test: IMMEDIATE SPIN CROSSMATCH; Value: [id number] O POSITIVE Compatible? Y; Status: F Test: IMMEDIATE SPIN CROSSMATCH; Value: [id number] O POSITIVE Compatible? Y; Status: F Test: IMMEDIATE SPIN CROSSMATCH; Value: [id number] O POSITIVE Compatible? Y; Status: F Radiology Order: TRANSVAGINAL US Test: TRANSVAGINAL US REASON FOR EXAMINATION: Bleeding; ; CLINICAL HISTORY: determination.; TECHNIQUE: Endovaginal ultrasound of the pelvis was performed.; FINDINGS:; Multiple tiny cysts/sac like structures are noted within the uterus. No decidual reaction is seen.; Normal right ovary.; Corpus luteum cyst of the left ovary measuring 2 cm; Hyperechoic, thickwalled left adnexal mass medial to the left ovary with increased vascularity measur; ing 2.1x2.1x2 cm. Surrounding free fluid containing echogenic debris.; IMPRESSION:; Suspicion of left adnexal ectopic .; Surrounding heterogeneous fluid containing debris. This is suspicious for leakage/rupture.; No fracture or .; ; Outcome: 01:53 Decision to Hospitalize by Provider. cs11 02:24 Discharge Assessment: Patient awake, alert and oriented x 3. No cognitive and/or js15 functional deficits noted. Patient verbalized understanding of disposition instructions. patient administered narcotics - yes. Patient was admitted to the hospital or transferred to another facility. The following High Risk Discharge criteria are identified: None. Admitted to OR accompanied by nurse, accompanied by tech, via stretcher, with chart. Condition: unchanged. Ultrasound Study completed. Property :Personal belongings accompany Pt. 02:40 Patient left the ED. aug Signatures: Dispatcher [employer] EDGA Miryam Panchal, RN RN kmg1 Josefina Araya RN Doron Oates, TATE RN Merle Jimenez, Route Inspector Unit ml3 Pat Rosen, TECHNICAL SUPPORT TECHNICIAN TECHNICAL SUPPORT TECHNICIAN Larry Tierney, DO cs11 Joyce RiveraRN RN js15 Sonali Bolanos MTDD
--- NOTE | 2016-09-04 02:40 | EDDOCDS ---
[facility] Name: Marlene Souza Age: 26 yrs Sex: Female : 1990 Arrival Date: 09/04/2016 Time: 00:07 Bed 5 Private MD: Disposition: 09/04/16 01:53 Hospitalization ordered by Leander Lilly for Inpatient Admission. Preliminary diagnosis is Delayed or excessive hemorrhage following ectopic and molar . - Bed requested for Admit. - Status is Inpatient Admission. janie - Condition is Stable. - Problem is new. - Symptoms have worsened. Historical: - Allergies: No known drug Allergies; - Home Meds: 1. none - PMHx: none; - PSHx: none; - Social history: Smoking status: Patient uses tobacco products, current some day smoker. No barriers to communication noted, The patient speaks fluent Kiswahili, Speaks appropriately for age. - Family history: Not pertinent. - : The pt / caregiver states he / she is not on anticoagulants. Home medication list is obtained from the patient. - Exposure Risk Screening:: None identified. 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 4 in. (162.56 cm) (R); Pain 10/10; 02:25 BP 134 / 75; Pulse 67; Resp 16; Temp 98.3(O); Pulse Ox 99% on R/A; Pain 7/10; js15 02:26 Pain 7/10; js15 00:27 Body Mass Index 29.18 (77.11 kg, 162.56 cm) kmg1 MDM: 00:32 CBC Ordered. EDMS 00:32 Rh Only Ordered. EDMS 00:32 Hcg, Serum Quantitative Ordered. EDMS 01:03 TRANSVAGINAL US Ordered. EDMS 01:38 Financial registration complete. slh 01:41 IV Saline Lock ordered. cs11 01:41 NS 0.9% 1000 ml IV at bolus once ordered. cs11 01:41 Dilaudid - HYDROmorphone 0.5 mg IVP once ordered. cs11 01:41 Pt & Aptt Ordered. EDMS 01:41 Type and Cross, Packed Cells Ordered. EDMS 01:44 TYPE & SCREEN Ordered. EDMS 01:54 BED REQUEST+ADM ordered. EDMS 02:36 Admission Orders was scanned into [employer] and attached to record. ml3 Administered Medications: 02:05 Drug: NS 0.9% 1000 ml [sodium chloride 0.9 % intravenous solution] Route: IV; Rate: js15 bolus; Site: left antecubital; 02:26 Follow up: IV Status: Infusion continued upon admit js15 02:05 Drug: Dilaudid - HYDROmorphone 0.5 mg [hydromorphone 1 mg/mL injection syringe (0.5 js15 mL)] Route: IVP; Site: left antecubital; 02:26 Follow up: Pain 710 Adult; Response: No Adverse Reaction js15 Signatures: Dispatcher [employer] EDMS Miryam Panchal, RN RN kmg1 Marshal, Josefina Gonzalez, RN Merle Shi, Weaving Teacher Unit ml3 Larry Jalloh, DO cs11 Cassandra Carey Julia,TATE RN js15 The chart was reviewed and I authenticate all verbal orders and agree with the evaluation and treatment provided.Corrections: (The following items were deleted from the chart) 01:03 00:32 1ST TRIMESTER US+US ordered. EDMS EDMS Attachments: 02:36 Admission Orders ml3 MTDD
[2016-09-04] MEDS ORDERED: ceFAZolin 1GM INJ (J0690) As Ordered ONE (02:57)
[2016-09-04] MEDS ORDERED: PROPOFOL 200 MG/20 ML VIAL As Ordered ONE (03:24)
[2016-09-04] MEDS ORDERED: fentaNYL 250 MCG/5 ML INJECTION (J3010) As Ordered ONE (03:24)
[2016-09-04] MEDS ORDERED: MIDAZOLAM INJ 2 MG/2 ML VIAL (J2250) As Ordered ONE (03:24)
[2016-09-04] MEDS ORDERED: METOCLOPRAMIDE INJ 10MG/2ML VIAL (J2765) As Ordered ONE (03:24)
[2016-09-04] MEDS ORDERED: NEOSTIGMINE 1MG/ML 5 ML SYRINGE (J2710) As Ordered ONE (03:25)
[2016-09-04] MEDS ORDERED: KETOROLAC 60 MG/2 ML VIAL (J1885) As Ordered ONE (03:25)
[2016-09-04] MEDS ORDERED: GLYCOPYRROLATE INJ 0.2 MG/ML 2 ML VIAL As Ordered ONE (03:25)
[2016-09-04] MEDS ORDERED: SUCCINYLCHOLINE 100 MG/5 ML SYRINGE (J0330) As Ordered ONE (03:25)
[2016-09-04] MEDS ORDERED: LIDOCAINE 2% INJ 100 MG/5 ML SDV (FOR ANES.) As Ordered ONE (03:25)
[2016-09-04] MEDS ORDERED: ROCURONIUM BROMIDE 50 MG/5 ML VIAL As Ordered ONE (03:25)
[2016-09-04] MEDS ORDERED: LIDOCAINE 2% JELLY 30 ML As Ordered ONE (03:28)
[2016-09-04] MEDS ORDERED: BUPIVACAINE/EPIN 0.25% 30 ML VIAL XX ONE (03:45)
[2016-09-04] MEDS ORDERED: OXYC1TAB23 PO (04:27)
[2016-09-04] MEDS: HYDROmorphone HCL 1 MG/ML SYRINGE (J1170) IV PRN ×4 (04:27→05:04)
[2016-09-04] MEDS ORDERED: LR 1,000 ML IV SCH (04:30)
[2016-09-04] MEDS ORDERED: fentaNYL 100 MCG/2 ML INJECTION (J3010) IV PRN (04:30)
[2016-09-04] MEDS ORDERED: ONDANSETRON 4MG/2ML VIAL (J2405) IV PRN (04:30)
[2016-09-04] MEDS ORDERED: PERCOCET 5MG/325MG TAB As Ordered ONE (05:10)
[2016-09-04] MEDS: PERCOCET 5MG/325MG TAB PO PRN ×2 (05:10→09:51)
[2016-09-04] MEDS ORDERED: IBUPROFEN 800 MG TAB PO SCH (09:00)
--- NOTE | 2016-09-04 13:28 | RO ---
DATE OF PROCEDURE: 09/04/2016 HISTORY: Marlene is a 26-year-old female 4, para 0-0-3-0 who presented with acute abdominal pain, was found to have a questionable ruptured ectopic . After extensive counseling, she is being taken to the operating room for an operative laparoscopy. PREPROCEDURE DIAGNOSES 1. Acute abdominal pain. 2. Ruptured ectopic . POSTPROCEDURE DIAGNOSES 1. Acute abdominal pain. 2. Ruptured ectopic . 3. Left ruptured fallopian tube, ectopic, with adhesions noted to the left side. 3. Endometriotic implant in the posterior cul-de-sac. OPERATIVE PROCEDURE: 1. Operative laparoscopy. 2. Left salpingectomy. SURGEON: Leander Lilly MD TUBE DRAWER: ANESTHESIA: General. COMPLICATIONS: None. ESTIMATED BLOOD LOSS: Less than 100 mL. FINDINGS: Hemoperitoneum with approximately 500 mL of clotted blood in the cul-de-sac as well the abdominal cavity. A ruptured left ectopic noted. The left ovary was within normal limits. The right ovary and tube within normal limits. Pelvic adhesions also noted to the pelvic sidewall, to the left pelvic sidewall. Endometriotic implant noted on posterior cul-de-sac. DESCRIPTION OF PROCEDURE: After obtaining informed consent, the patient was taken to the operating room where general anesthetic was found to be adequate. She was then draped and prepped in the usual sterile fashion in the dorsal lithotomy position. At this point, a Sanders catheter was placed in the bladder for drainage. We then placed a uterine manipulator. Attention was then turned to the abdomen where 10 mm infraumbilical incision was made using the Veress needle. The abdomen was insufflated with CO2 gas to approximately 3.5 liters. We then inserted a 12 trocar under direct visualization. Another 10 mm port was placed on the right. The patient was then placed in Trendelenburg. The abdomen and pelvis inspected with the above-noted findings. Using suction foundation relations director the blood was irrigated and suctioned out. We then were able to identify the ruptured ectopic using the MARLA Harmonic scalpel. The fallopian tube was resected and removed as well as the ectopic . Pelvis was then copiously irrigated with normal saline and suctioned out. The adhesions noted to the left side were also taken down. These adhesions were found to be filmy and was just taken down with a series of blunt and sharp dissection. Pelvis was again copiously irrigated with normal saline. The operative site inspected. No evidence of bleeding noted. All instruments removed. The laparoscopic ports were closed using #0 Vicryl in the fascia and Dermabond on the skin. 0.25% Marcaine was placed for postoperative pain. The patient tolerated procedure well. She was then transferred to recovery room in stable condition.
--- NOTE | 2016-09-04 21:08 | CR ---
DATE OF CONSULTATION: 09/04/2016 Marlene is a 26-year-old female 4, para 0-0-3-0, who presented to the emergency room with complaints of acute abdominal pain. Upon evaluation in the emergency room, she was found to have a questionable ruptured left ectopic . The patient was seen in the emergency room on Monday with a low beta. The patient said her pain was 10/10. She had some vomiting. The patient receive morphine. PAST MEDICAL HISTORY: Denies. PAST SURGICAL HISTORY: tonsilectomy SOCIAL HISTORY: She denies any alcohol or drug use. She is a current smoker. MEDICATIONS: vitamins ALLERGIES: No known drug allergies. FAMILY HISTORY: Denies. PHYSICAL EXAMINATION: VITAL SIGNS: On admission, her blood pressure was 134/75, pulse 67, respiration 16, temperature 98.3, oxygen saturation 99% on room air. Normal-appearing female in moderate to severe distress. HEENT: Grossly within normal limits. ABDOMEN: Soft, tender to touch, mild rebound and guarding especially in the lower quadrant. EXTREMITIES: No clubbing, cyanosis or edema. VAGINAL EXAMINATION: Deferred. LABORATORY DATA: Reviewed. Hemoglobin and hematocrit was 14.6/40.4, white count of 5.9, platelets of 254. Beta hCG 1448. Blood type is O+. Ultrasound shows multiple cystic structure on the uterus. The left ovary had a 2 cm cyst with what appeared to be an ectopic on the left measuring 2.1 x 2 x 1.2 surrounding with free fluid. 1. Acute abdominal pain. 2. Ruptured ectopic , most likely on the left. PLAN: The patient counseled extensively, both her and her mother. The patient will be taken to the operating room for an operative laparoscopy, removal of the ectopic , and possible left salpingectomy. [place]
--- NOTE | 2016-09-06 03:41 | EDDOCDS ---
Nurse's Notes Name: Marlene Souza Age: 26 yrs Sex: Female : 1990 Arrival Date: 09/04/2016 Time: 00:07 Bed 5 Private MD: Diagnosis: Delayed or excessive hemorrhage following ectopic and molar Presentation: 09/04 00:25 Presenting complaint: Patient states: Vaginal bleeding. Severe left lower abdominal kmg1 pain. Was seen here for same last evening. Risk factors: The patient reports no loss of conciousness prior to arrival. This patient has not had a hysterectomy. This patient has not begun menopause. Suicide/Homicide risk assessment- the patient denies having any suicidal and/or homicidal ideations and does not present with any other emotional, behavioral or mental health complaints. Status: Patient is not a client services specialist or dependent. Transition of care: patient was not received from another setting of care. 00:25 Acuity: KP Level 3 kmg1 00:25 Method Of Arrival: Walkin/Carried/Asstd km 02:24 Adult Sepsis Screening: The patient does not have new or worsening altered mentation. js15 Patient's respiratory rate is less than 22. Systolic blood pressure is greater than 100. Patient has a qSOFA score of 0- Negative Sepsis Screen. Triage Assessment: 00:27 General: Appears distressed, ill, uncomfortable, Behavior is crying, restless. Pain: kmg1 Location: left lower quadrant Pain currently is 10 out of 10 on a pain scale. Quality of pain is described as sharp, stabbing. HIV screening NA for this visit Offered previously. GI: Pt is actively vomiting Reports lower abdominal pain, nausea, vomiting. : Reports vaginal bleeding that is moderate flow. 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 none - PMHx: none; - PSHx: none; - Social history: Smoking status: Patient uses tobacco products, current some day smoker. No barriers to communication noted, The patient speaks fluent Pashto, Speaks appropriately for age. - Family history: Not pertinent. - : The pt / caregiver states he / she is not on anticoagulants. Home medication list is obtained from the patient. - Exposure Risk Screening:: None identified. Screenin:22 Screening information is obtained from the patient. Fall risk: No risks identified. js15 Assistance ADL's: requires no assistance with activities of daily living. Abuse/DV Screen: The patient / caregiver reports he/she is: not in a situation that causes fear, pain or injury. Nutritional screening: No deficits noted. Advance Directives: There is no active DNR order. home support is adequate. Assessment: 00:45 General: Appears uncomfortable, Behavior is anxious, appropriate for age, cooperative. js15 Pain: Location: abdomen and left lower quadrant Pain currently is 10 out of 10 on a pain scale. Neurological: Level of Consciousness is awake, alert, obeys commands, Oriented to person, place, time. Cardiovascular: Capillary refill < 3 seconds. Respiratory: Airway is patent Respiratory effort is even, unlabored, Respiratory pattern is regular, symmetrical, Breath sounds are clear bilaterally. GI: Abdomen is non- distended Bowel sounds present X 4 quads. Abd is tender to palpation in left lower quadrant. : Reports vaginal bleeding that is heavy flow. Derm: Skin is pink, warm & dry. 01:30 Reassessment: Pt resting on stretcher with eyes closed; respirations even and js15 unlabored; skin pink, warm, dry; will continue to monitor. 02:22 Reassessment: Pt sitting up on stretcher, tearful, states pain 10/10 in abdomen; js15 respirations unlabored; skin pink, warm, dry, will continue to monitor. Vital Signs: 00:27 BP 155 / 86; Pulse 85; Resp 20; Temp 99.4(O); Pulse Ox 100% on R/A; Weight 77.11 kg [facility] (R); Height 5 ft. 4 in. (162.56 cm) (R); Pain 10/10; 02:25 BP 134 / 75; Pulse 67; Resp 16; Temp 98.3(O); Pulse Ox 99% on R/A; Pain 7/10; js15 02:26 Pain 7/10; js15 00:27 Body Mass Index 29.18 (77.11 kg, 162.56 cm) [facility] Vitals: 00:27 Log In Time: September 04, 2016 at 00:01. [facility] ED Course: 00:09 Patient visited by Sonali Bolanos. [facility] 00:09 Patient moved to Waiting gjb 00:27 Triage Initiated kmg1 00:29 Patient moved to Pre RCE cz 00:31 Patient moved to 5 kmg1 00:32 Larry Jalloh DO is Attending Physician. cs11 00:32 Patient visited by Larry Jalloh DO. cs11 01:36 Patient visited by Pat Rosen PCA. eleanor 01:42 Type and Cross, Packed Cells Sent. js15 01:50 The patient / caregiver is instructed regarding the plan of care and ED course. js15 01:50 Inserted saline lock: 18 gauge in left antecubital area The patient tolerated the js15 procedure well. 01:52 Leander Lilly MD is Hospitalizing Provider. cs11 01:58 TYPE & SCREEN Sent. js15 01:58 Pt & Aptt Sent. js15 02:03 TRANSVAGINAL US Returned. EDMS 02:24 No procedures done that require assistance. js15 02:36 Admission Orders was scanned into [employer] and attached to record. ml3 02:46 Patient name changed from Marlene\S\M\S\Souza\S\ to Marlene\S\Alicia\S\Souza. EDNE 02:49 [place] Payment Agreement was scanned into [employer] and attached to record. [facility] 02:49 [facility] Payment Agreement was scanned into [employer] and attached to record. [facility] 20:05 T-Sheet-- Draft Copy was scanned into [employer] and attached to record. klr Administered Medications: 02:05 Drug: NS 0.9% 1000 ml [sodium chloride 0.9 % intravenous solution] Route: IV; Rate: js15 bolus; Site: left antecubital; 02:26 Follow up: IV Status: Infusion continued upon admit js15 02:05 Drug: Dilaudid - HYDROmorphone 0.5 mg [hydromorphone 1 mg/mL injection syringe (0.5 js15 mL)] Route: IVP; Site: left antecubital; 02:26 Follow up: Pain 7/10 Adult; Response: No Adverse Reaction js15 Order Results: Lab Order: CBC; SPEC'M 09/04/16 00:44 Test: WHITE BLOOD COUNT; Value: 5.9; Range: 4.0-10.0; Units: K/mm3; Status: F Test: RED BLOOD COUNT; Value: 4.44; Range: 4.00-5.40; Units: M/mm3; Status: F Test: HEMOGLOBIN; Value: 14.6; Range: 12.0-16.0; Units: g/dl; Status: F Test: HEMATOCRIT; Value: 40.4; Range: 36.0-47.0; Units: %; Status: F Test: MEAN CORPUSCULAR VOLUME; Value: 91.2; Range: 80.0-96.0; Units: fl; Status: F Test: MEAN CORPUSCULAR HEMOGLOBIN; Value: 32.8; Range: 27.0-33.0; Units: pg; Status: F Test: MEAN CORPUSCULAR HGB CONC; Value: 36.0; Range: 32.0-36.5; Units: g/dl; Status: F Test: RED CELL DISTRIBUTION WIDTH; Value: 12.3; Range: 11.5-14.5; Units: %; Status: F Test: PLATELET COUNT, AUTOMATED; Value: 254; Range: 150-450; Units: k/mm3; Status: F Lab Order: Rh Only; SPEC'M 09/04/16 00:44 Test: RH; Value: POSITIVE; Status: F Lab Order: Hcg, Serum Quantitative; SPEC'M 09/04/16 00:44 Test: HCG, SERUM QUANTITATIVE; Value: 1448; Units: MIU/ML; Status: F Test Note: ; GESTATIONAL AGE APPROXIMATE HCG RANGE (MIU/ML) 0.2-1 WEEK 5-50 1-2 WEEKS 50-500 2-3 WEEKS 100-5,000 3-4 WEEKS 500-10,000 4-5 WEEKS 1,000-50,000 5-6 WEEKS 10,000-100,000 6-8 WEEKS 15,000-200,000 2-3 MONTHS 10,000-100,000 NON FEMALES LESS THAN 3.0 Patient samples may contain human heterophilic antibodies that could react with immunoassays to give falsely elevated or depressed results. This assay has been designed to minimize interference from heterophilic antibodies. Elevated hCG levels have also been associated with trophoblastic disease and nontrophoblastic neoplasms. The possibility of having these diseases should be considered before a diagnosis of is made. This test is not intended for use as a surrogate marker for aiding in the diagnosis or monitoring the treatment of cancer patients. Siemens Power-One methodology. Lab Order: Pt & Aptt; SPEC'M 09/04/16 01:56 Test: PROTHROMBIN TIME; Value: 11.7; Range: 12.3-14.5; Abnormal: Below low normal; Units: SECONDS; Status: F Test: INR; Value: 0.85; Status: F Test: PARTIAL THROMBOPLASTIN TIME; Value: 24.8; Range: 26.6-37.1; Abnormal: Below low normal; Units: SECONDS; Status: F Test Note: ; THERAPUTIC HUMAN INR VALUES INDICATIONS NORMAL RANGES PROPHYLAXIS/TREATMENT OF: VENOUS THROMBOSIS 2.0-3.0 PULMONARY EMBOLISM 2.0-3.0 PREVENTION OF SYSTEMIC EMBOLISM FROM: TISSUE HEART VALVES 2.0-3.0 ACUTE MYOCARDIAL INFARCTION 2.0-3.0 VALVULAR HEART DISEASE 2.0-3.0 ATRIAL FIBRILLATION 2.0-3.0 MECHANICAL VALVES(HIGH RISK) 2.5-3.5 RECURRENT MYOCARDIAL INFARCTION 2.5-3.5 Lab Order: TYPE & SCREEN; SPEC'M 09/04/16 01:56 Test: BLOOD TYPE; Value: O POS; Status: F Test: AB SCREEN (INDIRECT CHAPO)GEL; Value: NEGATIVE; Status: F Test: IMMEDIATE SPIN CROSSMATCH; Value: [id number] O POSITIVE Compatible? Y; Status: F Test: IMMEDIATE SPIN CROSSMATCH; Value: [id number] O POSITIVE Compatible? Y; Status: F Test: IMMEDIATE SPIN CROSSMATCH; Value: [id number] O POSITIVE Compatible? Y; Status: F Test: IMMEDIATE SPIN CROSSMATCH; Value: [id number] O POSITIVE Compatible? Y; Status: F Radiology Order: TRANSVAGINAL US Test: TRANSVAGINAL US REASON FOR EXAMINATION: Bleeding; ; CLINICAL HISTORY: determination.; TECHNIQUE: Endovaginal ultrasound of the pelvis was performed.; FINDINGS:; Multiple tiny cysts/sac like structures are noted within the uterus. No decidual reaction is seen.; Normal right ovary.; Corpus luteum cyst of the left ovary measuring 2 cm; Hyperechoic, thickwalled left adnexal mass medial to the left ovary with increased vascularity measur; ing 2.1x2.1x2 cm. Surrounding free fluid containing echogenic debris.; IMPRESSION:; Suspicion of left adnexal ectopic .; Surrounding heterogeneous fluid containing debris. This is suspicious for leakage/rupture.; No fracture or .; ; Outcome: 01:53 Decision to Hospitalize by Provider. cs11 02:24 Discharge Assessment: Patient awake, alert and oriented x 3. No cognitive and/or js15 functional deficits noted. Patient verbalized understanding of disposition instructions. patient administered narcotics - yes. Patient was admitted to the hospital or transferred to another facility. The following High Risk Discharge criteria are identified: None. Admitted to OR accompanied by nurse, accompanied by tech, via stretcher, with chart. Condition: unchanged. Ultrasound Study completed. Property :Personal belongings accompany Pt. 02:40 Patient left the ED. janie Signatures: Dispatcher [employer] EDMS Miryam Panchal RN RN kmg1 Josefina Araya RN RN jan Zecher, Calvin, RN RN cz Lopresti, Mary-Elizabeth, Medicine Teacher Unit ml3 Pat Rosen, CRYSTAL GROWER CRYSTAL GROWER eleanor Larry Jalloh, DO DO cs11 Cassandra Carey Julia, RN RN js15 Sonali Bolanos Kathie klr Chart Complete MTDD
--- NOTE | 2016-09-06 03:41 | EDDOCDS ---
Physician Documentation [facility] Name: Marlene Souza Age: 26 yrs Sex: Female : 1990 Arrival Date: 09/04/2016 Time: 00:07 Bed 5 Private MD: Disposition: 09/04/16 01:53 Hospitalization ordered by Leander Lilly for Inpatient Admission. Preliminary diagnosis is Delayed or excessive hemorrhage following ectopic and molar . - Bed requested for Admit. - Status is Inpatient Admission. janie - Condition is Stable. - Problem is new. - Symptoms have worsened. Historical: - Allergies: No known drug Allergies; - Home Meds: 1. none - PMHx: none; - PSHx: none; - Social history: Smoking status: Patient uses tobacco products, current some day smoker. No barriers to communication noted, The patient speaks fluent Estonian, Speaks appropriately for age. - Family history: Not pertinent. - : The pt / caregiver states he / she is not on anticoagulants. Home medication list is obtained from the patient. - Exposure Risk Screening:: None identified. 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 4 in. (162.56 cm) (R); Pain 10/10; 02:25 BP 134 / 75; Pulse 67; Resp 16; Temp 98.3(O); Pulse Ox 99% on R/A; Pain 7/10; js15 02:26 Pain 7/10; js15 00:27 Body Mass Index 29.18 (77.11 kg, 162.56 cm) kmg1 MDM: 00:32 CBC Ordered. EDMS 00:32 Rh Only Ordered. EDMS 00:32 Hcg, Serum Quantitative Ordered. EDMS 01:03 TRANSVAGINAL US Ordered. EDMS 01:38 Financial registration complete. slh 01:41 IV Saline Lock ordered. cs11 01:41 NS 0.9% 1000 ml IV at bolus once ordered. cs11 01:41 Dilaudid - HYDROmorphone 0.5 mg IVP once ordered. cs11 01:41 Pt & Aptt Ordered. EDMS 01:41 Type and Cross, Packed Cells Ordered. EDMS 01:44 TYPE & SCREEN Ordered. EDMS 01:54 BED REQUEST+ADM ordered. EDMS 02:36 Admission Orders was scanned into [employer] and attached to record. 3 02:49 [facility] Payment Agreement was scanned into [employer] and attached to record. [facility] 02:49 [facility] Payment Agreement was scanned into [employer] and attached to record. [facility] 20:05 T-Sheet-- Draft Copy was scanned into [employer] and attached to record. klr Administered Medications: 02:05 Drug: NS 0.9% 1000 ml [sodium chloride 0.9 % intravenous solution] Route: IV; Rate: js15 bolus; Site: left antecubital; Follow up: IV Status: Infusion continued upon admit js15 02:05 Drug: Dilaudid - HYDROmorphone 0.5 mg [hydromorphone 1 mg/mL injection syringe (0.5 js15 mL)] Route: IVP; Site: left antecubital; : Follow up: Pain 7/10 Adult; Response: No Adverse Reaction js15 Signatures: Dispatcher [employer] EDMS Miryam Panchal, RN RN kmg1 Josefina Araya, RN RN Merle Scott, Journalism Teacher Unit ml3 Larry Jalloh, DO cs11 Cassandra Carey Joyce Escamilla,TATE YBARRA js15 Corine Lindsey The chart was reviewed and I authenticate all verbal orders and agree with the evaluation and treatment provided.Corrections: (The following items were deleted from the chart) 01:03 00:32 1ST TRIMESTER US+US ordered. EDMS EDMS Attachments: 02:36 Admission Orders [facility] 02:49 [facility] Payment Agreement [facility] 02:49 [facility] Payment Agreement [facility] 20:05 T-Sheet-- Draft Copy klr Chart Complete MTDD
--- NOTE | 2016-09-06 03:41 | EDDOCDS ---
Physician Documentation [facility] [place] Name: Marlene Souza Age: 26 yrs Sex: Female : 1990 Arrival Date: 09/04/2016 Time: 00:07 Bed 5 Private MD: Disposition: 09/04/16 01:53 Hospitalization ordered by Leander Lilly for Inpatient Admission. Preliminary diagnosis is Delayed or excessive hemorrhage following ectopic and molar . - Bed requested for Admit. - Status is Inpatient Admission. janie - Condition is Stable. - Problem is new. - Symptoms have worsened. Historical: - Allergies: No known drug Allergies; - Home Meds: 1. none - PMHx: none; - PSHx: none; - Social history: Smoking status: Patient uses tobacco products, current some day smoker. No barriers to communication noted, The patient speaks fluent Turkmen, Speaks appropriately for age. - Family history: Not pertinent. - : The pt / caregiver states he / she is not on anticoagulants. Home medication list is obtained from the patient. - Exposure Risk Screening:: None identified. 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 4 in. (162.56 cm) (R); Pain 10/10; 02:25 BP 134 / 75; Pulse 67; Resp 16; Temp 98.3(O); Pulse Ox 99% on R/A; Pain 7/10; js15 02:26 Pain 7/10; js15 00:27 Body Mass Index 29.18 (77.11 kg, 162.56 cm) kmg1 MDM: 00:32 CBC Ordered. EDMS 00:32 Rh Only Ordered. EDMS 00:32 Hcg, Serum Quantitative Ordered. EDMS 01:03 TRANSVAGINAL US Ordered. EDMS 01:38 Financial registration complete. slh 01:41 IV Saline Lock ordered. cs11 01:41 NS 0.9% 1000 ml IV at bolus once ordered. cs11 01:41 Dilaudid - HYDROmorphone 0.5 mg IVP once ordered. cs11 01:41 Pt & Aptt Ordered. EDMS 01:41 Type and Cross, Packed Cells Ordered. EDMS 01:44 TYPE & SCREEN Ordered. EDMS 01:54 BED REQUEST+ADM ordered. EDMS 02:36 Admission Orders was scanned into [employer] and attached to record. 3 02:49 [facility] Payment Agreement was scanned into [employer] and attached to record. [facility] 02:49 [facility] Payment Agreement was scanned into [email or web address] and attached to record. [facility] 20:05 T-Sheet-- Draft Copy was scanned into [employer] and attached to record. klr Administered Medications: 02:05 Drug: NS 0.9% 1000 ml [sodium chloride 0.9 % intravenous solution] Route: IV; Rate: js15 bolus; Site: left antecubital; Follow up: IV Status: Infusion continued upon admit js15 02:05 Drug: Dilaudid - HYDROmorphone 0.5 mg [hydromorphone 1 mg/mL injection syringe (0.5 js15 mL)] Route: IVP; Site: left antecubital; : Follow up: Pain 7/10 Adult; Response: No Adverse Reaction js15 Signatures: Dispatcher [employer] EDMS Miryam Panchal, RN RN kmg1 Josefina Araya, RN RN Merle Scott, Timber Estimator Unit ml3 Larry Jalloh, DO cs11 Cassandra Carey Joyce Escamilla,TATE YBARRA js15 Corine Lindsey The chart was reviewed and I authenticate all verbal orders and agree with the evaluation and treatment provided.Corrections: (The following items were deleted from the chart) 01:03 00:32 1ST TRIMESTER US+US ordered. EDMS EDMS Attachments: 02:36 Admission Orders [facility] 02:49 [facility] Payment Agreement [facility] 02:49 [facility] Payment Agreement [facility] 20:05 T-Sheet-- Draft Copy klr Chart Complete MTDD
== END 2016-09-04 10:50 | disposition home or self-care (01) ==
LOC: M ED 00:07 → M OROP 02:30 → M PED 05:25 → M OROP 10:50
PROVIDERS: ATTEND Obstetrics & Gynecology
DX: O00.90 Unspecified ectopic pregnancy without intrauterine pregnancy (principal); R10.2 Pelvic and perineal pain; F17.290 Nicotine dependence, other tobacco product, uncomplicated; N83.202 Unspecified ovarian cyst, left side
CPT/HCPCS: 59151; 76817; 84702; 85027; 85610; 85730; 86850; 86900; 86901; 86920; 88305; 96374; 99285; J0330; J0690; J1170; J1885; J2250; J2405; J2710; J2765; J3010

== ENCOUNTER 2016-09-17 12:06 | Emergency (ER) | payer BC ==
[~2016-09-17 12:06] MED LIST changes: +OXYC1TAB23 PO
== END 2016-09-17 12:20 | disposition left against medical advice (07) ==
LOC: M ED 12:06
DX: Z53.29 Procedure and treatment not carried out because of patient's decision for other reasons (principal)

== ENCOUNTER → 2017-08-29 | Outpatient (CLI) | payer MEDICAID, SELFPAY | LOC: M RAD 13:09 | DX: Z36.89 Encounter for other specified antenatal screening (principal); Z3A.09 9 weeks gestation of pregnancy | CPT/HCPCS: 76801 ==

== ENCOUNTER → 2019-11-08 | Outpatient (CLI) | payer OTHER, MEDICAID ==
[~2019-11-08] MED LIST changes: +METR1INJ2 PO; -METR500IV PO
--- NOTE | 2019-11-08 22:24 | REP ---
HISTORY: anatomy. COMPARISON: None. Multiple ultrasonographic images of the gravid uterus show a single living intrauterine gestation in the cephalic presentation. Doppler interrogation of the heart shows a heart rate of 143 beats per minute. The placenta is anterior and not low lying. The subjective amniotic fluid volume is within normal limits. The cervix measures 3.5 cm in length but is closed. Evaluation of the maternal adnexal spaces showed no abnormalities. BPD 4.9 cm = 20 weeks 6 days HC 18.7 cm = 21 weeks 0 days AC 16.2 cm = 21 weeks 2 days FL 3.8 cm = 23 weeks 0 days The estimated weight is 432 grams, which is at the 61st percentile for a 21 week 1 day gestational age. The anatomical structures visualized as unremarkable are as follows: Thalami, cavum septum pellucidum, cerebellum, cisterna magna, cerebral ventricles, spine, kidneys, stomach, urinary bladder, cord insertion, three vessel umbilical cord, four chamber heart, facial features, right and left ventricular outflow tracts, and upper and lower extremities. IMPRESSION: Single living intrauterine gestation as described above with an estimated gestational age of 21 weeks 1 day via composite criteria and an estimated date of delivery of 03/19/2020 by today's exam. No anomalies were detected.
== END ==
LOC: M WHC 11:58
PROVIDERS: ATTEND Obstetrics & Gynecology Obstetrics
DX: Z34.82 Encounter for supervision of other normal pregnancy, second trimester (principal); Z36.89 Encounter for other specified antenatal screening; Z3A.21 21 weeks gestation of pregnancy

== ENCOUNTER 2020-09-05 09:40 | Emergency (ER) | payer MEDICAID, OTHER ==
[~2020-09-05] VITALS: Ht 162.6 cm; Wt 88.9 kg
[2020-09-05] MEDS ORDERED: TETRACAINE 0.5% OPHTH SOLN 4ML OD ONE (10:15)
[2020-09-05] MEDS ORDERED: FLUORESCEIN OPHTH 1 MG STRIP OD ONE (10:15)
[2020-09-05] MEDS ORDERED: POLYSOL OD (11:01)
[2020-09-05 11:17] VITALS: BP 138/78
== END 2020-09-05 11:18 | disposition home or self-care (01) ==
LOC: M ED 09:40
DX: S05.01XA Injury of conjunctiva and corneal abrasion without foreign body, right eye, initial encounter (principal); W50.0XXA Accidental hit or strike by another person, initial encounter; Y92.9 Unspecified place or not applicable; Y93.9 Activity, unspecified; Y99.9 Unspecified external cause status; F17.200 Nicotine dependence, unspecified, uncomplicated